=== PATIENT | female | born 1985 | race Caucasian/White ===

== ENCOUNTER 2019-02-27 14:17 | Emergency (ER) | payer MEDICAID ==
[~2019-02-27] VITALS: Ht 162.6 cm; Wt 73.4 kg
[~2019-02-27 14:17] MED LIST: IBUP800T48 PO; METH500T PO
[2019-02-27 14:23] VITALS: BP 123/60; PULSE 75; RESP 20; Ht 162.6 cm; Wt 73.4 kg
[2019-02-27] MEDS ORDERED: KETOROLAC 60 MG INJ IM STA (16:04)
== END 2019-02-27 17:21 | disposition home or self-care (01) ==
LOC: FTE 14:17
DX: M75.81 Other shoulder lesions, right shoulder (principal)
CPT/HCPCS: 81025; 96372; J1885; Z7502